=== PATIENT | female | born 1940 | race Caucasian/White ===

== ENCOUNTER → 2016-10-20 | Day surgery (SDC) | payer OTHER ==
--- NOTE | 2016-10-18 15:19 | MH ---
cc: MARK YOUNG MD DATE OF ADMISSION: 10/20/2016 DATE OF : 1940 REASON FOR ADMISSION: Anterior posterior repair. HISTORY OF PRESENT ILLNESS: The patient is a 75-year-old white female, 3, para 3 who has issues with pelvic organ prolapse and urinary retention. She has been given options for treatment and wants to proceed with surgery. PAST MEDICAL HISTORY: The patient medical history, hypertension, hypercholesterolemia, otherwise negative. Coronary artery vascular disease. PAST SURGICAL HISTORY Orthopedic procedures. She has had history of coronary artery catheterization in 2008. ALLERGIES None MEDICATIONS Amlodipine / Benazepril 10 mg daily Crestor 20 mg daily. GYNECOLOGIC HISTORY No STDs or abnormal Pap smears after menopause in her early 50s no hormone replacement OBSTETRICAL HISTORY Three vaginal deliveries. FAMILY HISTORY: The family history noncontributory. SOCIAL HISTORY Ling's good social support. No alcohol, tobacco, caffeine use REVIEW OF SYSTEMS As above. No chest pain, orthopnea, PND. No nausea or chills. No vaginal bleeding or discharge. Has issues with urinary incontinence. She has felt secondary to overflow she has pelvic pressure discomfort secondary to her pelvic organ prolapse, otherwise 14-point review negative. PHYSICAL EXAMINATION: IN GENERAL: She is afebrile. VITAL SIGNS: Stable, blood pressure 120/70, height 5'2", weighs 138, BMI is 25. IN GENERAL: Patient is alert and oriented the distress. No sign of cognitive function depression. HEAD, EYES, EARS, NOSE, AND THROAT: Within normal limits. NECK: The neck is supple. No JVD. CHEST: Clear. HEART: Regular rate and rhythm. ABDOMEN: The abdomen is soft, nontender, no hepatosplenomegaly. No costovertebral angle tenderness. PELVIC: Pelvic exam in the office shows pop Q score Aa +1, Ap 0, Point C is -5, genital hiatus 6. Perineal body is 4, total vaginal length is 10, postvoid residual 200 cc. Further exam under anesthesia. EXTREMITIES: Normal SKIN: Without rashes. NEUROLOGIC: Nonfocal. No DVT signs. ASSESSMENT Patient with anterior apartment defect, urinary retention probably related to her stress incontinence. We have discussed options, management and treatment. She is aware of the risks, benefits, alternatives of planned procedure including damage to surrounding organs, bleeding, infection, need for further catheterization and possibility that she will of worsening incontinence. The patient has elected to proceed. The patient has issues with posterior compartment defect and diminution of posterior body. At this point she is going to undergo a posterior repair as well in the same setting again we discussed options for management, treatment and the risks and benefits and she has made informed choice to proceed. We anticipate using Ancef 2 grams for antibiotic prophylaxis and sequential compression device for DVT prophylaxis. Anticipate outpatient procedure. MD ELVIN Roman/monae /4:28 PM /3:18 PM
[~2016-10-20] VITALS: Ht 157.5 cm; Wt 63.8 kg
[~2016-10-20] MED LIST: ACETAMINOPHEN 1000 MG/100 ML VIAL IV ONE; AMLO10CA PO; CHLORHEXIDINE GLUCONATE 2 % 1 PACK (2 CLOTHS) TOPICAL PRN; DEXAMETHASONE SOD PHOS 4 MG/ML VIAL ONE; DO NOT ADM ANY ANTICOAGULANT DRUGS PRN; ESTROGENS CONJUGATED VAG CREA 15 APPL/30 GM TUBE ONE; FLUORESCEIN SOD 10% SOLN 500 MG/5 ML AMP ONE; INSULIN HUMAN REGULAR 1,000 UNITS/10 ML VIAL SQ PRN; KETOROLAC TROMETHAMINE 30 MG/ML (IVP) VIAL IV PUSH PRN; KETOROLAC TROMETHAMINE 60 MG/2 ML (IM) VIAL IM ONE; LACTATED RINGER'S 1000 ML IV PRN; LIDOCAINE 1%/EPINEPHrine 1:100,000 SOLN 50 ML VIAL ONE; METHYLENE BLUE 10 MG/ML VIAL OTHER ONE; METOPROLOL TARTRATE 25 MG TAB PO PRN; MIDAZOLAM HCL 2 MG/2 ML VIAL ONE; ONCETAB7 PO; ONDANSETRON HCL 4 MG/2 ML VIAL IV PUSH PRN; PILL SPLITTER OTHER PRN; POVIDONE IODINE 5% (ANTISEPSIS KIT) 4 APPLICATIONS EACH NARE PRN; PROPOFOL 200 MG/20 ML AMP IV ONE; ROSU20 PO; SODIUM CHLORID 0.9% 500 ML IV PRN; VITA100064 PO; ceFAZolin 2 GM PREMIX 50 ML IV SCH; ePHEDrine/NS 25 MG/5 ML SYR IV ONE; traMADol HCL 50 MG TAB PO PRN
[2016-10-20 06:30] VITALS: BP 139/72; PULSE 72; RESP 18; TEMP 98.1; O2SAT 98
--- NOTE | 2016-10-20 10:04 | MP ---
cc: MARK YOUNG MD DATE OF SURGERY 10/20/2016 PREOPERATIVE DIAGNOSES Pelvic organ prolapse POSTOPERATIVE DIAGNOSES 1. Midline cystocele stage II 2. Rectocele with enterocele stage II 3. Uterine prolapse stage II PROCEDURE 1. Anterior posterior repair with enterocele repair. 2. Extraperitoneal hysteropexy 3. Diagnostic cystoscopy SURGEON Mark Young MD ANESTHESIA Laryngeal mask BLOOD LOSS 25 cc URINE OUTPUT 100 cc RN PRODUCTION [facility] staff x1 FLUIDS 1200 cc of crystalloid FINDINGS External genitalia normal. POP-Q score: Aa is +1, Ap is 0. Point C is -1. Total vaginal length is 10. Genital hiatus is 6. Perineal body is 5. Following repair, POP-Q score: Aa is -3, Ap is -3. Point C is -8. Total vaginal length is 8. Genital hiatus is 5. Perineal body is 5. Cystoscopy shows normal trigone, good coaptation of urethra, ureteral orifices patent x2. Dome and base of bladder normal. Rectal exam normal following repair. SPECIMENS None COMPLICATIONS None DISPOSITION To recovery room stable. COUNTS Needle and sponge counts correct. DRAINS Simeon catheter ANTIBIOTIC PROPHYLAXIS Two grams Ancef, DVT prophylaxis sequential compression device. Time-out procedure per protocol SUMMARY OF INDICATIONS FOR THE PROCEDURE Patient with symptomatic pelvic organ prolapse. The patient taken TO THE operating room theater, identified, prepped and draped in a fashion appropriate for the planned procedure. She was in the dorsal lithotomy position with careful attention paid to placement of legs in stirrups to avoid undue stress to sensitive neurovascular structures. Above findings noted. Neurovascular integrity documented. Methylene blue was instilled into the bladder The exam under anesthesia showed there was significantly more uterine prolapse then we had appreciated in the office. There was significant anterior compartment prolapse and we started on this compartment first. Epinephrine/lidocaine solution was infiltrated. The mucosa was incised. The bladder was mobilized. Colporrhaphy was performed in standard fashion with delayed absorbable suture. The vaginal mucosa was trimmed. Hemostatic matrix was used for hemostasis to obviate the need for packing. The mucosa was closed with a running Vicryl suture. Cystoscopy was performed using a 17-Niuean bridge, a 70 degrees scope. The above findings were noted. The posterior compartment was identified. Epinephrine/Lidocaine solution was infiltrated with a modified pudendal block. We then incised the vaginal mucosa, reflected the rectum, there was one finger in the rectum to give us traction and countertraction and to prevent damage to the rectum. Enterocele was encountered. This was closed with a series of sutures. Colporrhaphy was performed in the lion hunter compartment in the standard fashion with delayed absorbable suture. The vaginal mucosa was trimmed without complication. A modified hysteropexy was performed to elevate the uterus with an extraperitoneal approach. The pelvis was inspected. All areas were hemostatic. Rectal exam was normal following repair. Pop Q scores as noted above. The patient reversed from anesthesia, taken to recovery room in stable condition. MD ELVIN Roman/ANGIE /9:36 AM /9:52 AM
[2016-10-20 11:00] VITALS: BP 116/65; PULSE 84; RESP 18; TEMP 96.2; O2SAT 96
--- NOTE | 2016-10-20 15:53 | EKG ---
Date Performed: 10/20/2016 Time Performed: 07:01:48 PTAGE: 75 years EKG: Sinus rhythm MARKED LEFT AXIS DEVIATION LEFT BUNDLE BRANCH BLOCK ABNORMAL ECG NO PREVIOUS TRACING DOCTOR: Lui Jones Interpretating Date/Time 10/20/2016 15:52:13
== END | disposition home or self-care (01) ==
LOC: HSDC 05:57
PROVIDERS: ATTEND Obstetrics & Gynecology Gynecology
DX: N81.2 Incomplete uterovaginal prolapse (principal); K46.9 Unspecified abdominal hernia without obstruction or gangrene; I10 Essential (primary) hypertension; E78.00 Pure hypercholesterolemia, unspecified; R33.9 Retention of urine, unspecified; E78.5 Hyperlipidemia, unspecified; M06.9 Rheumatoid arthritis, unspecified; Z87.891 Personal history of nicotine dependence
CPT/HCPCS: 57265; 58400; 93005; J0131; J0690; J1100; J1885; J2250; J3010; J7120